=== PATIENT | female | born 1985 | race Caucasian/White ===

== ENCOUNTER 2022-11-15 13:58 | Emergency (ER) | payer OTHER, SELFPAY ==
--- NOTE | ~2022-11-15 | CT_ITS ---
EXAMINATION: CT abdomen pelvis w con INDICATION: Left lower quadrant pain TECHNIQUE: Computed tomographic images of the abdomen and pelvis were obtained after the administrati on of 100 cc of Omnipaque 350 intravenous contrast. The dose-length product (DLP) was 377.71 mGy-cm. Automated exposure control and iterative reconstruction technique were employed. COMPARISON: None available FINDINGS: The lung bases are clear. The heart size is normal. The liver, spleen, pancreas, gallbladde r, and adrenal glands are normal. The kidneys are unremarkable. No pathologically enlarged abdominal or pelvic lymph nodes are identified. There is no free intraperitoneal gas or evidence of bowel obstr uction. The appendix is normal. Colonic diverticulosis is present without evidence of diverticulitis. IMPRESSION: 1. No CT correlate for the patient's symptoms. Reviewed, dictated and finalized at location F. TY DIRECTOR
--- NOTE | ~2022-11-15 | US_ITS ---
EXAMINATION: US pelvic complete w TV DATE: 11/15/2022 17:50 INDICATION: Left lower quadrant pain TECHNIQUE: Multiple transabdominal and endovaginal sonographic images of the pelvis were obtained. COMPARISON: None. FINDINGS: The uterus measures 8.0 x 4.2 x 5.6 cm. The endometrial complex measures 2 mm. The right ov last measures 2.5 x 1.4 x 1.9 cm. The left ovary measures 3.2 x 2.2 x 2.7 cm. There is a 2.7 x 1.6 x 2 .1 cm cyst with septation in the left adnexa. There is normal vascular flow in the ovaries. There is no free fluid in the pelvis. IMPRESSION: 1. No sonographic correlate for the patient's symptoms. Reviewed, dictated and finalized at location F. VAT TENDER
[2022-11-15 14:00] VITALS: BP 128/74; PULSE 92; RESP 18; TEMP 36.7; O2SAT 100
--- NOTE | 2022-11-15 14:23 | ED.ABDPAIN ---
HPI - Abdominal Pain General Chief Complaint: Abdominal Pain Stated Complaint: Pain in left lower abdomen, hx diverticulitis Time Seen by Provider: 11/15/22 14:21 Source: patient Mode of arrival: ambulatory Limitations: no limitations History of Present Illness HPI narrative: Patient is a 37 y/o female who presents to the ED with c/o left lower quadrant abdominal pain. Patient reports she developed discomfort in her lower abdomen earlier this week. She has a Hx of diverticulitis and diverticulosis. She called her PCP and was Rx'd a 3 day course of Augmentin BID which she has since finished. Patient reports pain became worse today, and focal in her LLQ, which prompted her presentation. Pain is aggravated with sitting down. She denies fever, nausea, vomiting, constipation. She has had a bowel movement every day, which is normal for her, but she notes they have been smaller in size this week. Denies any rectal bleeding or melena. Denies urinary symptoms. Related Data Allergies Allergy/AdvReac Type Severity Reaction Status Date / Time silver Allergy Unknown Verified 11/15/22 14:52 [From Tegaderm AG Mesh] Sulfa (Sulfonamide Allergy Unknown Verified 11/15/22 14:52 Antibiotics) hydromorphone [From Dilaudid] AdvReac Unknown Verified 11/15/22 14:52 Review of Systems Review of Systems: CONSTITUTIONAL: Denies fever, chills, or sweats. CARDIOVASCULAR: Denies chest pain. RESPIRATORY: Denies dyspnea. GASTROINTESTINAL: See HPI. GENITOURINARY: Denies dysuria or hematuria. All systems reviewed & are unremarkable except as noted in HPI and below PMFSH Past Medical History Medical History (Updated 11/15/22 @ 17:54 by Ronda Newman PA-C) History of diverticulitis Surgical History Surgical History (Updated 11/15/22 @ 14:38 by Ronda Newman PA-C) History of colonoscopy Social History Social History (Updated 11/15/22 @ 14:38 by Ronda Newman PA-C) Smoking status: Never smoker Exam Narrative: GENERAL: Well appearing, well-nourished, non-toxic, in no acute distress. HEAD: Normocephalic, atraumatic. NECK: Supple. No adenopathy, no masses. RESPIRATORY: Airway patent, respirations nonlabored. Clear to auscultation bilaterally, no rales, rhonchi, wheezing. CARDIOVASCULAR: Regular rate and rhythm without murmurs, rubs, or gallops. Peripheral pulses 2+ and equal bilaterally. ABDOMINAL: Soft, tenderness throughout LLQ, no significant tenderness throughout remainder of abdomen, nondistended, no hepatosplenomegaly. Normoactive BS. MUSCULOSKELETAL: Moves all extremities. Strength/ROM intact without gross deformities. SKIN: Warm, dry, normal color. No rashes. NEURO: A&O X3. Speech clear. Cranial nerves II-XII grossly intact. Steady gait. No ataxic movements. PSYCHIATRIC: Appropriate mood and affect. Normal interaction. Course Vital Signs Vital signs: Vital Signs Temperature 98.1 F 11/15/22 14:00 Pulse Rate 92 11/15/22 14:00 Respiratory Rate 18 11/15/22 14:00 Blood Pressure 128/74 11/15/22 14:00 Pulse Oximetry 100 11/15/22 14:00 Oxygen Delivery Room Air 11/15/22 14:00 Temperature 98.1 F 11/15/22 14:00 Pulse Rate 69 11/15/22 18:08 Respiratory Rate 18 11/15/22 18:08 Blood Pressure 94/68 L 11/15/22 18:08 Pulse Oximetry 99 11/15/22 18:08 Oxygen Delivery Room Air 11/15/22 14:00 MDM - Abdominal Pain MDM Narrative Medical decision making narrative: Patient presented to ED with several day history of left lower quadrant abdominal pain, worse today. History of diverticulitis which pain felt similar. Vital stable upon arrival. Patient nontoxic appearing. No acute distress. Basic blood work obtained and unremarkable. No leukocytosis. UA without signs of infection. CT scan of abdomen pelvis obtained and no CT correlate for patient's symptoms. Did show diverticulosis, but no signs of diverticulitis. Patient denying any improvement of pain with Tylenol in the ED
[2022-11-15] MEDS: SODIUM CHLORIDE 0.9% IV 1,000 ML 999 ML IV CONT (14:54)
[2022-11-15 14:56] LABS: Appearance Urine Clear (Clear); Bilirubin Urine Negative (Negative); Blood Urine Trace-intact (Negative); Color Urine Yellow (Yellow); Glucose Urine UA Negative (Negative); Ketones Urine Negative (Negative); Leukocyte Esterase Ur Negative LEU/UL (Negative); Nitrate Urine Negative (Negative); Protein Urine Negative (Negative); Urobilinogen Urine 0.2 mg/dL (<2.0)
[2022-11-15 14:59] LABS: Basophils Absolute Auto 0.1 K/mm3 (0.0-0.1); Basophils Percent Auto 0.9 % (0.2-1.2); Eosinophils Absolute Auto 0.2 K/mm3 (0-0.3); Eosinophils Percent Auto 2.7 % (0-4.4); Hematocrit 41.8 % (37.0-47.0); Hemoglobin 13.9 g/dL (12.0-15.0); Immature Granulocyte Absolute 0.03 K/mm3 (0.00-0.031); Immature Granulocyte Percent A 0.4 % (0-0.5); Lymphocytes Absolute Auto 2.91 K/mm3 (0.9-3.2); Lymphocytes Percent Auto 37.4 % (18.3-44.2); Mean Corpuscular HGB Conc 33.3 g/dl (32-36); Mean Corpuscular Hemoglobin 30.4 pg (26-34); Mean Corpuscular Volume 91.5 fl (80-100); Mean Platelet Volume 9.3 fl (7.4-10.4); Monocytes Absolute Auto 0.5 K/mm3 (0.1-0.6); Monocytes Percent Auto 6.9 % (2.6-8.5); Neutrophils Percent Auto 51.7 % (45.5-73.1); Platelet Count Result 253 k/mm3 (150-375); Red Blood Count 4.57 M/mm3 (4.2-5.4); Red Cell Distribution Width 13.2 % (11.5-14.5); White Blood Count 7.8 K/mm3 (4.5-10.0)
[2022-11-15 15:05] LABS: Alanine Aminotransferase 16 U/L (6-35); Albumin Level 3.8 g/dL (3.5-5.1); Alkaline Phosphatase 62 U/L (38-126); Anion Gap 4 mmol/L (8-16); Aspartate Amino Transferase 19 U/L (14-36); Bilirubin,Total 1.1 mg/dL (0.2-1.3); Blood Urea Nitrogen 7 mg/dL (7-17); Calcium 8.4 mg/dL (8.4-10.2); Carbon Dioxide 26 mmol/L (22-30); Chloride 108 mmol/L (98-107); Estimated CRCL calculation 87 ml/min; Estimated Glomerular Filt Rate > 60; Glucose 96 mg/dL (65-110); Potassium 3.7 mmol/L (3.4-5.0); Sodium 138 mmol/L (137-145)
[2022-11-15 15:15] LABS: RBC Urine 0-2 /hpf (0-2); Squamous Epithelial Cell Urine Rare /hpf (Few); WBC Urine 0-3 /hpf
[2022-11-15 15:19] LABS: Add Urine Microscopic? YES
[2022-11-15 16:01] VITALS: BP 108/68; PULSE 81; RESP 18; O2SAT 100
[2022-11-15 18:08] VITALS: BP 94/68; PULSE 69; RESP 18; O2SAT 99
== END 2022-11-15 18:36 | disposition home or self-care (01) ==
PROVIDERS: Emergency Provider Physician Assistant
DX: R10.32 Left lower quadrant pain (principal); K57.90 Diverticulosis of intestine, part unspecified, without perforation or abscess without bleeding
CPT/HCPCS: 36415; 74177; 76830; 76856; 80053; 81001; 81025; 85025; 96361; 96365; 99284; J0131; J7030; Q9967